=== PATIENT | male | born 1985 | race Caucasian/White ===

== ENCOUNTER → 2018-11-28 13:27 | Outpatient (CLI) | payer OTHER, MEDICAID, SELFPAY ==
--- NOTE | 2018-11-28 | DI.CT.S_ITS ---
PROCEDURE: CT HEAD/BRAIN WO CON INDICATIONS: Ataxia, unspecified TECHNIQUE: Noncontrast 4.5 mm thick angled axial sections acquired from the foramen magnum to the vertex, with coronal and sagittal reformats. For radiation dose reduction, the following was used: automated exposure control, adjustment of mA and/or kV according to patient size. COMPARISON: [facility], , CT HEAD W/O CONTRAST, 10/12/2018, 13:57. [facility], , CT HEAD W/O CONTRAST, 03/08/2018, 14:51. FINDINGS: Image quality: Excellent. CSF spaces: Basal cisterns are patent. No extra-axial fluid collections. Ventricles are abnormal in size and shape with dilated occipital horns bilaterally. Brain: No midline shift. No intracranial masses or hemorrhage. 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 Skull and face: Calvarium and visualized facial bones are intact, without suspicious lesions. Sinuses: There is an air-fluid level in the left maxillary sinus. Mastoids are clear. IMPRESSION: 1. No acute intracranial abnormalities compared to the prior examinations. 2. 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 3. An air-fluid level in the left maxillary sinus suggesting sinusitis. Dictated by: Sharath Gardner M.D. on 11/29/2018 at 10:27 Approved by: Sharath Gardner M.D. on 11/29/2018 at 10:42
== END ==
PROVIDERS: PCP Physician Assistant Medical; Visit Provider Psychiatry & Neurology Neurology
DX: R27.0 Ataxia, unspecified (principal); G93.89 Other specified disorders of brain; Q04.6 Congenital cerebral cysts
CPT/HCPCS: 70450

== ENCOUNTER 2024-05-06 11:02 | Emergency (ER) | payer MEDICARE, MEDICAID, SELFPAY ==
[2024-05-06 11:10] VITALS: BP 147/79; PULSE 118; RESP 20; TEMP 36.6; O2SAT 100; BMI 22.3
--- NOTE | 2024-05-06 12:15 | ED_ITS ---
HPI - Head Injury General Chief complaint: Head Injury Stated complaint: Head Injury/Req for MRI Time Seen by Provider: 05/06/24 12:15 History of Present Illness HPI Narrative: Usman Vega is a 38-year-old gentleman with a past medical history of severe autism, self-injurious behavior w/ helmet use, anxiety, seizure disorder, severe intellectual disability, congenital cerebral cyst, encephalopathy who presents to the emergency department with his POA Cali and his direct windows desktop support [place] for concerns of the patient not being able to hold his head upright, decreased energy, decreased food intake since he had a head injury on 04/25/2024. Patient frequently hits his head when he is frustrated and therefore wears a helmet however on 04/25/2024 he hit his head and sustained lacerations while not wearing a helmet. Went to [facility] where he was sedated and had suture repair performed. On 05/01/2024 he returned to the emergency department for his current concerns of not being willing to hold his head upright and not acting at his normal baseline behavior. At this time he had CT imaging performed of the head neck and abdomen which revealed no acute injuries, and he was diagnosed with constipation and postural kyphosis. Since then he has had no improvement in his symptoms, he occasionally receives acetaminophen for pain. He is unable to or unwilling to lift up his head due to pain in the posterior neck while sitting upright however when the head supported such as lying in better recliner he is able to straighten in the neck. His caregivers bring him to the emergency department today requesting for brain MRI for further evaluation. There has been no new trauma or change in symptoms since he last received his CT scans on 05/01/2024. No fevers, chills, nausea, vomiting, coughing. Patient is primarily nonverbal and history is obtained by his caregivers however he can provide ?yes? and no answers. Related Data Previous Rx's Medication Instructions Recorded lidocaine 5 % topical patch 1 patch topical DAILY #15 ea 05/06/24 (Lidoderm) Allergies Allergy/AdvReac Type Severity Reaction Status Date / Time No Known Drug Allergies Allergy Verified 05/06/24 11:10 Review of Systems Review of Systems ROS Unobtainable: All systems reviewed & are unremarkable except as noted in HPI and below Patient History Social History (Reviewed 02/23/25 @ 16:42 by AMADO [place] Smoking Status: Never smoker Smoking Status: Never smoker Exam Narrative Exam Narrative: GENERAL: 38 year old patient appears older than stated age, is somewhat disheveled chronically ill-appearing. Sitting hunched forward in wheelchair, helmet on. Exam very limited. HEAD: Patient unwilling to allow helmet to be removed. EYES: Pupils are equal and round. ENT: Nose without bleeding, purulent drainage. NECK: No tenderness to palpation of the cervical spine or paraspinal muscles. Patient does signify pain with passive extension of the neck. CARDIOVASCULAR: Slightly increased rate but regular rhythm. RESPIRATORY: ?Nonlabored respirations. ?Clear to auscultation. BACK: Postural kyphosis, sitting hunched forward, no tenderness to palpation of midline spine. NEURO: Alert, able to respond to questions with grunts, ?yes, no understood by his caregivers. Able to squeeze both my hands. Initial Vital Signs Initial Vital Signs: Vital Signs Temperature 97.9 F 05/06/24 11:10 Pulse Rate 118 H 05/06/24 11:10 Respiratory Rate 20 05/06/24 11:10 Blood Pressure 147/79 H 05/06/24 11:10 Pulse Oximetry 100 05/06/24 11:10 Oxygen Delivery Method Room Air 05/06/24 11:10 Course Orders Ordered: Discontinued Medications Lidocaine (Lidocaine 5% Patch) 1 each TOP NOW ONE Stop: 05/06/24 13:18 Last Admin: 05/06/24 13:32 Dose: 1 each Documented By: MAXIMILIAN Vital Signs Vital signs: Vital Signs - 8 hr 05/06/24 11:10 05/06/24 13:35 Temperature 97.9 F Pulse Rate 118 H 107 H Respiratory Rate 20 18 Blood Pressure 147/79 H Pulse Oximetry 100 99 Oxygen Delivery Method Room Air Room Air MDM - Head Injury Medical Records Attestation: I reviewed the patient's medical records. Medical records narrative: Extensive record review of printed [facility] records 04/25 and 05/01. [facility] Narrative Medical decision making narrative: 38-year-old gentleman with a past medical history of severe autism, self- injurious behavior w/ helmet use, anxiety, seizure disorder, severe intellectual disability, congenital cerebral cyst, encephalopathy who presents to the emergency department with his POA Cali and his direct windows desktop support [place] for concerns of the patient not being able to hold his head upright, decreased energy, decreased food intake since he had a head injury on 04/25/2024. Differential diagnosis includes but is not limited to postural kyphosis, muscle weakness, muscle spasm, concussion, cervical strain, etc. Considered infectious causes of neck pain such as meningitis however patient's symptoms resulted after trauma and is having no fevers or feeling sick. On exam the patient is in no acute distress however he is easily aggravated by any form of touching and did attempt to hit me when performing physical exam. He does communicate using grunts and can respond to questions. He has no tenderness to palpation of the cervical spine or midline back, he is sitting in a hunched over position with his head down and signifies pain when attempting to elevate head up. Extensively reviewed his prior imaging reports which were performed at [facility] for the same symptoms including CT soft tissue neck, CT cervical spine, CT abdomen pelvis, CT head. These studies reveal no acute CT abnormality of the neck no acute CT abnormality of the abdomen pelvis, moderate stool burden, distended urinary bladder. No acute intracranial abnormality. Patient does have re-identified poor and cephalad involving the occipital lobes. Had an extensive discussion with the patient's caregivers, the patient, and the attending ED physician. At this time there was no indication for repeat CT imaging as there has been no changes or new trauma since his last CT imaging. I did discuss with the patient that potential MRI imaging of the head and neck could be beneficial however this time there is no identified emergent need for MRI. We did discuss that patient could have sustained a concussion or cervical strain after his initial injury which then resulted in pain of the neck that may have contributed to his postural kyphosis in addition to the weight of his helmet. At this point I do believe patient warrants further evaluation by both his primary care doctor and his neurologist for further management, I believe he would benefit from physical therapy to help strengthen the neck muscles. We did discuss the use of acetaminophen, ibuprofen, Lidoderm to help with potential neck pain or headache. The caregivers in the patient verbalized understanding of all of this information. Plan is for them to contact their PCP and neurologist tomorrow to schedule ER follow up appointments. We discussed signs and symptoms to return to the emergency department for such as any new or worsening symptoms, neurologic deficits, fevers or other concerns. The patient is stable for discharge home at this time, I encouraged allowing the patient to rest in a recliner or in bed where he can comfortably lay his head back. Lidoderm sent to his pharmacy. Discharge Plan Departure Patient Disposition: Home Clinical Impression: Closed head injury Qualifiers: Encounter type: initial encounter Qualified Code(s): S09.90XA - Unspecified injury of head, initial encounter Postural kyphosis Qualifiers: Spinal region: cervicothoracic Qualified Code(s): M40.03 - Postural kyphosis, cervicothoracic region Instructions: DI for Whiplash Activity Restrictions/Additional Instructions: Thank you for coming to the emergency department. Today Usman was evaluated for postural kyphosis and neck pain after sustaining a head injury on 04/25/2024. I reviewed all of his prior CT imaging from [facility]. In the emergency department, we are only able to evaluate for emergent life-threatening conditions, and do not have MRI capabilities for all conditions. After discussion, I do suspect that Usman sustained likely head injury or concussion and cervical strain from his prior injury which is likely contributing to his pain with sitting upright now. I would use acetaminophen/Tylenol and ibuprofen/Motrin in addition to topical lidocaine patches to help with his pain, and I urged that you follow up as soon as possible with his primary care doctor and his neurologist for further evaluation. His neurologist may want to order MRI imaging or other studies based on his evaluation. Please bring him back to the emergency department if he develops any new worsening or concerning symptoms, fevers, or other concerns. Please follow up with your primary care doctor within the next 2-3 days for ER follow-up. (If you do not have a PCP you can call [phone]. ?to schedule an appointment with an [facility] Primary Care Provider) IF YOU DEVELOP ANY NEW OR WORSENING SYMPTOMS, RETURN TO THE ER! Please read the attached instructions, they highlight more specific treatments and interventions for you at home. Thank you for letting me participate in your care, Maritza Herring PA-C Prescriptions: New lidocaine [Lidoderm] 5 % adhesive patch,medicated 1 patch topical DAILY Qty: 15 0RF Rx Instructions: leave on most painful area for up to 12 hrs Referrals: Aiden Lopez PA-C [Primary Care Provider] - Vladimir Villasenor MD [Non-Staff] - (Usman sustained a head injury on 04/25/24, and has been suffering from postural kyphosis and neck pain since. He had negative CT imaging, but would benefit from further outpatient neurology evaluation. ) Stand Alone Forms: Patient Portal/API/Survey
[2024-05-06] MEDS: LIDOCAINE 5% PATCH 1 EACH TOP (13:32)
[2024-05-06 13:35] VITALS: PULSE 107; RESP 18; O2SAT 99
== END 2024-05-06 13:40 | disposition home or self-care (01) ==
PROVIDERS: Emergency Provider Physician Assistant; PCP Physician Assistant Medical
DX: S09.90XA Unspecified injury of head, initial encounter (principal); M40.03 Postural kyphosis, cervicothoracic region; F84.0 Autistic disorder; X58.XXXA Exposure to other specified factors, initial encounter
CPT/HCPCS: 99282